=== PATIENT | female | born 1960 | race Caucasian/White ===

== ENCOUNTER 2017-12-11 20:20 | Emergency (ER) | payer OTHER, SELFPAY ==
[2017-12-11 20:32] VITALS: BP 110/61; PULSE 69; RESP 18; TEMP 36.9; O2SAT 96; BMI 23.3
--- NOTE | 2017-12-11 21:27 | ED_ITS ---
HPI - Eye Problem <KINSEY Mckeon-BC - Last Filed: 12/11/17 23:04> General Chief complaint: Eye Problems Stated complaint: EYE PAIN AND PUSS Time Seen by Provider: 12/11/17 20:40 Source: patient and family Mode of arrival: ambulatory Limitations: no limitations History of Present Illness HPI Narrative: Patient presents with sudden onset of right eye drainage, pus and eye burning. Denies blurry vision or double vision. States that she does have some problems seeing when she has pus in her eye. Denies eye pain in the back of her eye or with eye movement. States it is burning pain in the surface of her eye. She felt a transient foreign body sensation in the top of the eye but currently denies it. States that her eye hurts when she presses on it. She denies any fever, headache, nausea, vomiting or diarrhea. Related Data Home Medications Medication Instructions Recorded Confirmed biotin 5 mg PO #0 08/02/16 10/26/17 calcium carbonate [Calci-Chew] 1 tab PO #0 08/02/16 10/26/17 [BIEST] 1 ml TOPICAL QDAY #0 04/28/17 10/26/17 Previous Rx's Medication Instructions Recorded zolpidem 5 mg PO HS PRN #30 tab 04/08/17 ciprofloxacin HCl See Label Instructions .ROUTE 12/11/17 .COMPLEX #10 ml Allergies Allergy/AdvReac Type Severity Reaction Status Date / Time No Known Drug Allergies Allergy Unverified 10/26/17 19:02 Review of Systems <KINSEY Mckeon- - Last Filed: 12/11/17 23:04> Review of Systems GENERAL: Denies chills, fatigue, malaise, fever, sweats. HEENT: See HPI RESPIRATORY: Denies dyspnea, cough, wheezing, hemoptysis, sputum. CARDIOVASCULAR: Denies chest pain, palpitations, orthopnea, edema, GASTROINTESTINAL: Denies nausea, vomiting, abdominal pain, diarrhea, constipation, melena. : Denies dysuria, frequency, incontinence, hematuria, urinary retention. MUSCULOSKELETAL: denies weakness, joint pain, or bony pain SKIN: Denies rash, skin lesions, or other NEUROLOGIC: Denies weakness, headache, numbness, change in speech, confusion, seizures, incoordination. PSYCHIATRIC: No concerning psychosocial issues. 12 point review of systems is negative except for those stated above Exam <CARLOS Mckeon - Last Filed: 12/11/17 23:04> Narrative Exam Narrative: GENERAL: This is a well-nourished, well-developed patient, in mild distress. HEAD: Atraumatic. Normocephalic. No temporal or scalp tenderness. EYES: Pupils equal round and reactive bilaterally. EOMs intact bilaterally. No pain on EOMs. No visible stye or abnormality. Left corneal injection. Copious purulent drainage from a left eye and matting and lashes. ENT: Nose without bleeding, purulent drainage or septal hematoma. Throat without erythema, tonsillar hypertrophy or exudate. Uvula midline. Airway patent. NECK: No palpable lymphadenopathy CARDIOVASCULAR: Regular rate and rhythm without murmurs, gallops, or rubs. RESPIRATORY: Clear to auscultation. Breath sounds equal bilaterally. No wheezes , rales, or rhonchi. GASTROINTESTINAL: Abdomen soft, non-tender, nondistended. No hepato-splenomegaly , or palpable masses. No guarding. NEURO: AOx3. SKIN: No rash or erythema. No erythema or ecchymosis or rash around eyes. Initial Vital Signs Initial Vital Signs: Vital Signs Temperature 98.5 F 12/11/17 20:32 Pulse Rate 69 12/11/17 20:32 Respiratory Rate 18 12/11/17 20:32 Blood Pressure 110/61 12/11/17 20:32 Pulse Oximetry 96 12/11/17 20:32 <Rian Paige MD - Last Filed: 12/30/17 09:32> Initial Vital Signs Initial Vital Signs: Vital Signs Temperature 98.5 F 12/11/17 20:32 Pulse Rate 69 12/11/17 20:32 Respiratory Rate 18 12/11/17 20:32 Blood Pressure 110/61 12/11/17 20:32 Pulse Oximetry 96 12/11/17 20:32 Course <CARLOS Mckeon - Last Filed: 12/11/17 23:04> Additional Information: Patient presented for exudate and pain in her left eye. Visual acuity was done and patient states that her vision is normal for her. Exam revealed discharge from left eye, equal round reactive pupils. I offered slit lamp and fluorescein examination however patient declined at this point in time. Discussed at length follow-up if worsening or no improvement, eye pain or visual problems. Orders Ordered: Discontinued Medications Erythromycin (Erythromycin Ophth Oint) 1 applic EYE-LEFT NOW ONE Stop: 12/11/17 21:28 Last Admin: 12/11/17 21:46 Dose: 1 applic Vital Signs - 8 hr 12/11/17 20:32 12/11/17 21:42 Temperature 98.5 F Pulse Rate 69 65 Respiratory Rate 18 12 Blood Pressure 110/61 Blood Pressure [Left Arm] 109/63 Pulse Oximetry 96 100 <Rian Paige MD - Last Filed: 12/30/17 09:32> Orders Ordered: Discontinued Medications Erythromycin (Erythromycin Ophth Oint) 1 applic EYE-LEFT NOW ONE Stop: 12/11/17 21:28 Last Admin: 12/11/17 21:46 Dose: 1 applic Vital Signs - 8 hr 12/11/17 20:32 12/11/17 21:42 Temperature 98.5 F Pulse Rate 69 65 Respiratory Rate 18 12 Blood Pressure 110/61 Blood Pressure [Left Arm] 109/63 Pulse Oximetry 96 100 MDM - Eye Problem <CARLOS Mckeon - Last Filed: 12/11/17 23:04> [facility] Narrative Medical decision making narrative: Patient presented for left eye exudate and pain. Exam reveals purulent discharge from left eye. However pupils are equal round and reactive to light. Patient has no pain on eye movement. She did declined further examination via slit-lamp her fluorescein dye. I discussed strict follow-up for worsening vision, eye pain, or acute concerns. Patient stated she wanted to use colloid silver. I encouraged her to use prescription antibiotic medication. Given that pharmacies are closed, she was treated with bacitracin in the emergency department and given a prescription for Cipro drops. Discharge Plan Departure Patient Disposition: Home, Self-Care Clinical Impression: Conjunctivitis Discharge Date/Time: 12/11/17 21:53 Interventions: ED Discharge Assessment Last Done: 12/11/17 21:53 Instructions: DI for Conjunctivitis Activity Restrictions/Additional Instructions: I am starting you on antibiotics for an eye infection called conjunctivitis. We are starting you on an eye ointment tonight, but I have a prescription for eyedrops for you to fill tomorrow. I wanted to monitor for spreading redness from your eye, eye pain in the back of your eye and decreased vision. If you have any questions or concerns about your vision, please follow-up immediately. If you have any doubts her questions, follow-up. Prescriptions: New ciprofloxacin HCl 0.3 % drops See Label Instructions .ROUTE .COMPLEX Qty: 10 RF: 0 No Action calcium carbonate [Calci-Chew] 500 MG tablet,chewable 1 tab PO Qty: 0 RF: 0 biotin 5 MG tablet 5 mg PO Qty: 0 RF: 0 zolpidem 5 MG tablet 5 mg PO HS PRNQty: 30 RF: 3 [BIEST] 1 ml Topical QDAY Qty: 0 RF: 0 Referrals: Roxanna Riojas PA-C [Primary Care Provider] - <Rian Paige MD - Last Filed: 12/30/17 09:32> Sign Out Provider Sign Out Attestation: The PA/HEADER DOCK functioned independently for the care of this pt, I was available, but not asked to participate in care. I am unable to determine appropriateness of management without personally examining the pt.
[2017-12-11 21:42] VITALS: BP 109/63; PULSE 65; RESP 12; O2SAT 100
[2017-12-11] MEDS: ERYTHROMYCIN OPHTH 1 GM OINT 1 APPLIC EYE-LEFT (21:46)
== END 2017-12-11 21:53 | disposition home or self-care (01) ==
PROVIDERS: Emergency Provider Nurse Practitioner Family; Family Provider Physician Assistant; PCP Physician Assistant
DX: H10.9 Unspecified conjunctivitis (principal)
CPT/HCPCS: 99283

== ENCOUNTER 2018-02-18 15:49 | Emergency (ER) | payer OTHER, SELFPAY ==
[2018-02-18 15:54] VITALS: BP 128/81; PULSE 76; RESP 18; TEMP 36.1; O2SAT 100; BMI 23.0
--- NOTE | 2018-02-18 16:13 | ED.SYNCOPE ---
HPI - Syncope General Chief Complaint: Syncope Stated Complaint: HIT HEAD BLACKED OUT HEALS FEELS NUMB NECK PAIN Time Seen by Provider: 02/18/18 16:13 Source: patient Mode of arrival: ambulatory Limitations: no limitations History of Present Illness HPI narrative: 58-year-old female here for evaluation after she states that she was walking at a very fast pace stopping attention where she was going and she hit the bridge of her nose on a large metal object between the trailer and truck that was pulling the. She states that she did fall to the ground. She did not think that she lost any consciousness however was very dazed afterwards. Has no vision changes. Is having neck pain and was placed in a cervical collar by nursing staff states she was having tingling in her bilateral heels which is new for her. Related Data Home Medications Medication Instructions Recorded Confirmed biotin 5 mg PO #0 08/02/16 10/26/17 calcium carbonate [Calci-Chew] 1 tab PO #0 08/02/16 10/26/17 [BIEST] 1 ml TOPICAL QDAY #0 04/28/17 10/26/17 Previous Rx's Medication Instructions Recorded zolpidem 5 mg PO HS PRN #30 tab 04/08/17 ciprofloxacin HCl See Label Instructions .ROUTE 12/11/17 .COMPLEX #10 ml Allergies Allergy/AdvReac Type Severity Reaction Status Date / Time No Known Drug Allergies Allergy Verified 02/18/18 16:00 Review of Systems Constitutional Denies fever(s) and Reports headache(s) Eyes Denies blurry vision, Denies diplopia and Denies irritation ENT Ears, Nose, Mouth, and Throat: Denies dysphagia, Denies vertigo, Denies dizziness, Reports headache(s), Denies epistaxis, Reports nasal trauma, Reports neck pain, Denies tinnitus, Denies sore throat and Denies throat swelling Cardiovascular Denies chest pain and Denies dyspnea Respiratory Denies dyspnea Gastrointestinal Gastrointestinal: Denies abdominal pain, Denies dysphagia, Denies nausea and Denies vomiting Genitourinary Denies dysuria Musculoskeletal Denies back pain, Denies myalgias, Denies deformity, Reports neck pain and Reports numbness (Bilateral heels) Integumentary/Breasts Denies lesions and Denies rash Neurologic Denies vertigo, Denies dizziness, Reports headache(s) and Reports numbness (Bilateral heels) Hematologic/Lymphatic Denies easy bleeding and Denies easy bruising Allergic/Immunologic Denies throat swelling [facility] Medical History Healthy adult (Acute) Surgical History Status post surgery (07/26/16) Social History Smoking Status: Never smoker Exam Initial Vital Signs Initial Vital Signs: Vital Signs Temperature 97.0 F L 02/18/18 15:54 Pulse Rate 76 02/18/18 15:54 Respiratory Rate 18 02/18/18 15:54 Blood Pressure 128/81 02/18/18 15:54 Pulse Oximetry 100 02/18/18 15:54 Const General: cooperative, healthy appearing, comfortable, well developed, well groomed and No acute distress Orientation: alert, awake and oriented x3 HENMT Head: normal to inspection, normocephalic and atraumatic Ears: hearing grossly normal bilaterally and TM's normal bilaterally Nose: external nose normal, No epistaxis and No TMJ tender Face and sinus: normal facial exam, sinuses nontender and face symmetric Mouth: oral mucosae normal Resp Effort & Inspection: normal respiratory effort Auscultation: clear to auscultation bilaterally Cardio Rate: regular rate Rhythm: regular rhythm Pulses: radial pulses present GI Inspection: non-distended Palpation: soft, No firm and No tender Back/Spine/Pelvis Cervical Spine: collar present and cervical spinal tenderness (Midline) Skin Lesions: no lesions Rashes: no rashes Neuro General: alert, awake and oriented x3 Extrem General: capillary refill normal Psych Appearance: grossly normal and well kempt Course Orders Ordered: ED Orders 02/18/18 16:27 CT cervical spine wo con Stat CT head/brain wo con Stat Vital Signs - 8 hr 02/18/18 15:54 02/18/18 17:30 Temperature 97.0 F L Pulse Rate 76 71 Respiratory Rate 18 14 Blood Pressure 128/81 Blood Pressure [Left Arm] 126/74 Pulse Oximetry 100 99 MDM - Syncope Imaging Data CT scan - head: Radiologist's impression: [address] [address] [address] Scan Report Signed Patient: Kenyatta Lam RMR#: [id number] : [id number] Age/Sex: 58 / FDate of Service: 02/18/18 Loc: ED Accession Number: [id number] Procedure: CT head/brain wo con Ordering Provider: Leon Kelly D.O. PROCEDURE: CT HEAD/BRAIN WO CON INDICATIONS: Head injury also consciousness TECHNIQUE: Noncontrast 4.5 mm thick angled axial sections acquired from the foramen magnum to the vertex, with coronal and sagittal reformats. For radiation dose reduction, the following was used: automated exposure control, adjustment of mA and/or kV according to patient size. COMPARISON: None. FINDINGS: Image quality: Excellent. CSF spaces: Basal cisterns are patent. No extra-axial fluid collections. Ventricles are normal in size and shape. Brain: No midline shift. No intracranial masses or hemorrhage. Yusuf-white matter interface is normal. Skull and face: Calvarium and visualized facial bones are intact, without suspicious lesions. Sinuses: Visualized sinuses and mastoids are clear. IMPRESSION: No CT evidence of acute intracranial pathology. No gross acute skull fracture. Dictated by: Binu Cleary M.D. on 02/18/2018 at 17:28 Approved by: Binu Cleary M.D. on 02/18/2018 at 17:29 CT cervical spine: Radiologist's impression: [place] [address] CT Scan Report Signed Patient: Kenyatta Lam RMR#: [id number] : [id number] Age/Sex: 58 / FDate of Service: 02/18/18 Loc: ED Accession Number: [id number] Procedure: CT cervical spine wo con Ordering Provider: Leon Kelly D.O. PROCEDURE: CT CERVICAL SPINE WO CON INDICATIONS: Midline cervical pain after hitting head TECHNIQUE: Noncontrast 3 mm thick sections acquired from the skull base to the T4 level. Sagittal and coronal reformats were then constructed. For radiation dose reduction, the following was used: automated exposure control, adjustment of mA and/or kV according to patient size. COMPARISON: None. FINDINGS: Image quality: Excellent. Bones: There is straightening of normal cervical lordosis. No acute cervical spine vertebral body fracture is seen. No acute compression fracture or traumatic spondylolisthesis is seen. Minimal anterolisthesis of C3 on C4 and minimal retrolisthesis of C4 on C5 is noted. Degenerative endplate changes are noted at C3-4 through C5-6 levels with mild central canal stenosis, no significant neural foramina narrowing. Visualized superior ribs are intact. Soft tissues: Prevertebral soft tissues are normal in thickness. No paravertebral hematomas. No apical pneumothoraces. IMPRESSION: No acute cervical spine fracture or traumatic spondylolisthesis. Degenerative disc disease throughout cervical spine with suggestion of degenerative spondylolisthesis at C4-5 and C3-4 levels. Dictated by: Binu Cleary M.D. on 02/18/2018 at 17:31 Approved by: Binu Cleary M.D. on 02/18/2018 at 17:33 [facility] Narrative Medical decision making narrative: CT scan of her head neck shows no acute pathology. Does have degenerative changes in her cervical spine which the patient knows about these. With the neurologic symptoms after hitting her head I do suspect that she has sustained a concussion. No nasal fractures noted. Her nose is midline and she is able to breathe out of both nares. Will hold on further workup for now. Discussed all this with the patient. She was given return precautions. She expressed understanding and agreement with plan. Discharge Plan Departure Patient Disposition: Home Clinical Impression: CHI (closed head injury), Acute whiplash injury Discharge Date/Time: 02/18/18 18:15 Interventions: ED Discharge Assessment Last Done: 02/18/18 18:15 Instructions: Whiplash, Concussion, DI for Closed Head Injury Activity Restrictions/Additional Instructions: Would not be surprised if you are more sore tomorrow than you are today. Take the Tylenol/ibuprofen like we discussed. Also recommend that you do light stretching and heat and ice. Return to the emergency department for any new or worsening symptoms. Prescriptions: No Action calcium carbonate [Calci-Chew] 500 MG tablet,chewable 1 tab PO Qty: 0 RF: 0 biotin 5 MG tablet 5 mg PO Qty: 0 RF: 0 zolpidem 5 MG tablet 5 mg PO HS PRNQty: 30 RF: 3 [BIEST] 1 ml Topical QDAY Qty: 0 RF: 0 ciprofloxacin HCl 0.3 % drops See Label Instructions .ROUTE .COMPLEX Qty: 10 RF: 0
--- NOTE | 2018-02-18 16:27 | DI.CT.S_ITS ---
PROCEDURE: CT HEAD/BRAIN WO CON INDICATIONS: Head injury also consciousness TECHNIQUE: Noncontrast 4.5 mm thick angled axial sections acquired from the foramen magnum to the vertex, with coronal and sagittal reformats. For radiation dose reduction, the following was used: automated exposure control, adjustment of mA and/or kV according to patient size. COMPARISON: None. FINDINGS: Image quality: Excellent. CSF spaces: Basal cisterns are patent. No extra-axial fluid collections. Ventricles are normal in size and shape. Brain: No midline shift. No intracranial masses or hemorrhage. Yusuf-white matter interface is normal. Skull and face: Calvarium and visualized facial bones are intact, without suspicious lesions. Sinuses: Visualized sinuses and mastoids are clear. IMPRESSION: No CT evidence of acute intracranial pathology. No gross acute skull fracture. Dictated by: Binu Cleary M.D. on 02/18/2018 at 17:28 Approved by: Binu Cleary M.D. on 02/18/2018 at 17:29
--- NOTE | 2018-02-18 16:27 | DI.CT.S_ITS ---
PROCEDURE: CT CERVICAL SPINE WO CON INDICATIONS: Midline cervical pain after hitting head TECHNIQUE: Noncontrast 3 mm thick sections acquired from the skull base to the T4 level. Sagittal and coronal reformats were then constructed. For radiation dose reduction, the following was used: automated exposure control, adjustment of mA and/or kV according to patient size. COMPARISON: None. FINDINGS: Image quality: Excellent. Bones: There is straightening of normal cervical lordosis. No acute cervical spine vertebral body fracture is seen. No acute compression fracture or traumatic spondylolisthesis is seen. Minimal anterolisthesis of C3 on C4 and minimal retrolisthesis of C4 on C5 is noted. Degenerative endplate changes are noted at C3-4 through C5-6 levels with mild central canal stenosis, no significant neural foramina narrowing. Visualized superior ribs are intact. Soft tissues: Prevertebral soft tissues are normal in thickness. No paravertebral hematomas. No apical pneumothoraces. IMPRESSION: No acute cervical spine fracture or traumatic spondylolisthesis. Degenerative disc disease throughout cervical spine with suggestion of degenerative spondylolisthesis at C4-5 and C3-4 levels. Dictated by: Binu Cleary M.D. on 02/18/2018 at 17:31 Approved by: Binu Cleary M.D. on 02/18/2018 at 17:33
--- NOTE | 2018-02-18 16:44 | PC.NURSE ---
called into room, due to shaking and jaw shaking/ called into room, spoke with her. seems anxious. at side
[2018-02-18 17:30] VITALS: BP 126/74; PULSE 71; RESP 14; O2SAT 99
== END 2018-02-18 18:15 | disposition home or self-care (01) ==
PROVIDERS: Emergency Provider Emergency Medicine; Family Provider Physician Assistant; PCP Physician Assistant
DX: S09.90XA Unspecified injury of head, initial encounter (principal); S13.4XXA Sprain of ligaments of cervical spine, initial encounter; W22.8XXA Striking against or struck by other objects, initial encounter
CPT/HCPCS: 70450; 72125; 99283; 99284

== ENCOUNTER → 2018-10-12 15:24 | Outpatient (CLI) | payer OTHER, SELFPAY ==
--- NOTE | 2018-10-12 | DI.RAD.S_ITS ---
PROCEDURE: XR RIBS RT MIN 3V W CXR 1V INDICATIONS: Unspecified injury of thorax, initial encounter TECHNIQUE: 2 views of the right ribs were acquired, along with a single view chest. COMPARISON: None. FINDINGS: Surgical changes and devices: None. Bones and chest wall: No fractures or dislocations. No suspicious bony lesions. Overlying soft tissues appear unremarkable. Lungs and pleura: No pleural effusions or pneumothorax. Lungs appear clear. Mediastinum: Mediastinal contours appear normal. Heart size is normal. IMPRESSION: No displaced rib fractures. No acute cardiopulmonary findings. Dictated by: Jovanna Lozada M.D. on 10/12/2018 at 15:56 Approved by: Jovanna Lozada M.D. on 10/12/2018 at 15:57
== END ==
PROVIDERS: Family Provider Physician Assistant; PCP Physician Assistant; Visit Provider Physician Assistant
DX: S29.9XXA Unspecified injury of thorax, initial encounter (principal)
CPT/HCPCS: 71101

== ENCOUNTER → 2021-01-19 08:08 | Outpatient (CLI) | payer OTHER, SELFPAY ==
[2021-01-19 11:12] LABS: COVID19 -Nasal RAPID Negative (Negative)
== END ==
PROVIDERS: Family Provider Physician Assistant; PCP Physician Assistant; Visit Provider Obstetrics & Gynecology
DX: Z01.812 Encounter for preprocedural laboratory examination (principal); Z20.822 Contact with and (suspected) exposure to COVID-19
CPT/HCPCS: 87635

== ENCOUNTER 2021-01-20 09:01 | Day surgery (SDC) | payer OTHER, SELFPAY ==
[2021-01-08 15:04] VITALS: BMI 24.7
[2021-01-20] VITALS (9 sets, daily range): BP systolic 94–105; BP diastolic 46–65; PULSE 54–84; RESP 10–56; TEMP 35.6–36.8; O2SAT 95–100; BMI 23.3
--- NOTE | 2021-01-20 | PATH_ITS ---
[facility] Accession Number: [id number] . 01 Material submitted: . PART A: cervix - CONE BIOPSY OF CERVIX PART B: cervix - CERVICAL BIOPSY AT 6 O'CLOCK PART C: cervix - CERVICAL BIOPSY OF 12 O'CLOCK PART D: endocervix - ENDOCERVICAL CURETTAGE . 01 Clinical history: . A: SUTURE AT 12 O'CLOCK . 02 Diagnosis: A. Cone Biopsy of Cervix: All quadrants involved by high-grade squamous intraepithelial lesion / FIDEL 2-3 with patchy gland extension. High-grade squamous intraepithelial lesion / FIDEL 2-3 focally involves one margin, favor endocervical, in the 6-9 o'clock quadrant. The apparent ectocervical margin is negative for dysplasia. Positive for block immunostaining for p16. No invasive tumor identified by immunohistochemistry studies. . B. Cervical Biopsy at 6 o'clock, LEEP: Focal cytologic atypia suggestive of, but not diagnostic of, low-grade squamous intraepithelial lesion / FIDEL-1. The apparent tissue margins are negative for dysplasia. No features of previous instrumention are present. No definite transformation zone identified. . C. Cervical Biopsy at 12 o'clock, LEEP: Squamous mucosa with reactive changes; negative for squamous dysplasia or malignancy. Negative for p16 block immunostaining. No transformation zone identified. . D. Endocervical Curettage: Avulsed portions of atypical metaplastic squamous mucosa, concerning for high-grade squamous intraepithelial lesion / FIDEL 2-3 by immunohistochemistry studies. Small squamous fragments positive for p16 block immunostaining. Portion of endocervical polyp; negative for glandular dysplasia or malignancy. [facility] 01/23/2021 1406 Local . 02 Comment: . . . 02 Electronically signed: . Beata Villafana MD, Pathologist NPI- [id number] . 01 Gross description: . A. Received in formalin, labeled cone biopsy of cervix consists of a 1.4 x 1.0 cm guy smooth portion of ectocervix excised to a depth of 2.0 cm with a 0.8 x 0.3 cm os. There is a suture designated 12 o'clock. The endocervical margin is inked blue. The ectocervical margin is inked black. The specimen is radially sectioned and entirely submitted. . A1: 12-3 o'clock. A2: 3-6 o'clock. A3: 6-9 o'clock. A4: 9-12 o'clock. . B. Received in formalin, labeled cervical biopsy at 6 o'clock consists of a 2.0 x 0.5 x 0.4 cm guy-pink smooth portion of ectocervix. The margin is inked blue. The specimen is serially sectioned and entirely submitted in cassettes B1-B3. C. Received in formalin, labeled cervical biopsy at 12 o'clock consists of a 2.5 x 0.9 x 0.3 cm guy-pink smooth portion of ectocervix. The margin is inked blue. The specimen is serially sectioned and entirely submitted in cassettes C1-C3. D. Received in formalin, labeled endocervical curettage consists of multiple guy-pink fragments of soft tissue admixed with mucus and clotted blood measuring 2.5 x 1.5 x 0.4 cm in aggregate. The specimen is filtered and entirely submitted in cassette D1. ([id number]) /[facility] 01/21/2021 1044 Local . 02 Microscopic: . An immunohistochemical stain for p16 is performed on blocks A2, A3 and A4 to evaluate for block reactivity and are positive for block immunostaining. The control stained with appropriate reactivity. . Part A: P16 block immunostaining supports the presence of high risk HPV DNA in this biopsy. No evidence of invasive tumor. . An immunohistochemical stain for p16 is performed on blocks, C1, C2 and C3 to evaluate for block reactivity and are negative for block immunostaining. The control stained with appropriate reactivity. . Part C: The absence of p16 block immunostaining mitigates against the presence of high risk HPV DNA in this biopsy. . . An immunohistochemical stain for p16 is performed on block D1 to evaluate for block reactivity and is positive for block immunostaining. The control stained with appropriate reactivity. . Part D: P16 block immunostaining supports the presence of high risk HPV DNA in this biopsy. . . * This test was developed and its performance characteristics determined by [facility]. It has not been cleared or approved by the U.S. Food and Drug Administration. The FDA has determined that such clearance or approval is not necessary. This test is used for clinical purposes. It should not be regarded as investigational or for research. . 02 Pathologist provided ICD-10: N87.1, D06.9 . 02 CPT . 431458, 626300, 521787, 536956, [id number] Performed at: 01 [facility] [address] [place] [address], [place], [place] [id number] MD Joaquin Cordoba MD Phone: [phone] Performed at: 02 [facility] [address] [place] [id number] MD Shani Sapp MD Phone: [phone]
--- NOTE | 2021-01-20 09:49 | PM.PREOP ---
Pre-operative Note COVID-19 COVID-19 status: Negative Result date/Date tested (Pos, Neg/Pending): 01/19/21 Interval Note History & Physical reviewed/Exam performed by Physician: Yes Changes to H&P: No
--- NOTE | 2021-01-20 09:50 | P.HPOB_ITS ---
History of Present Illness History of Present Illness Reason for admission: other (FIDEL 2-3 on colpo directed biopsies of ECC and 12:00 p.m. biopsies) Narrative: Kenyatta Lam is a 60 year old female Admitted for cone LEEP for high-grade IVETT on colpo directed biopsies on 12/22/2020 both the endocervix and cervical 12:00 p.m. biopsy. Prior Pap smear 11/14/2020 was ASCUS cannot rule out high-grade dysplasia with positive high- risk HPV. [facility] Medical History (Updated 01/20/21 @ 09:55 by Marya Castaneda MD) Healthy adult Menorrhagia Submucous uterine fibroid Surgical History (Updated 01/08/21 @ 15:15 by Rowena Sherwood RN) History of bunionectomy History of hysteroscopy (07/26/16) Social History household members: spouse Smoking Status: Never smoker alcohol intake: current Meds Home Medications and Allergies Home Medications Medication Instructions Recorded Confirmed Type biotin 5 mg tablet 5 mg PO DAILY #0 08/02/16 01/20/21 History calcium carbonate 500 mg calcium 1 tab PO DAILY #0 08/02/16 01/20/21 History (1,250 mg) chewable tablet (Calci-Chew) [BIEST] 1 ml TOPICAL QDAY #0 04/28/17 12/26/18 History terbinafine HCl 1 % topical cream 1 applictn TOP BID #30 gram 12/26/18 01/08/21 Rx zolpidem 5 mg tablet 5 mg PO HS PRN 01/08/21 01/20/21 History alprazolam 1 mg tablet 0.5 - 1 mg PO BEDTIME PRN 01/19/21 01/20/21 History Progest Sl 0.2 ml PO DAILY 01/20/21 01/20/21 History Allergies Allergy/AdvReac Type Severity Reaction Status Date / Time No Known Drug Allergies Allergy Verified 12/26/18 17:29 Review of Systems Review of Systems Narrative: Patient denies any problems with her bladder. No uterine bleeding. No pelvic pain. ROS: Yes All systems reviewed with the patient and are negative except as otherwise documented Exam Narrative Exam Narrative: HEENT exam within normal limits. Lungs are clear to auscultation percussion. Heart is regular rate and rhythm no S3-S4 or murmurs. Abdomen is soft, nontender with no palpable organomegaly. Pap smear will be deferred for exam under anesthesia but normal exam by referring physician. Extremities nontender. Consent form for LEEP cone was reviewed with the patient. Minimal risk from the procedure such as bleeding, inadvertent injury to structures near the cervix, infection, reaction to medication or anesthesia. Patient is aware if she actually has cancer she will need a hysterectomy. Consent form signed and questions answered. Assessment & Plan Assessment and plan (1) High grade squamous intraepithelial lesion (HGSIL), grade 3 FIDEL, on biopsy of cervix: Status: Acute (2) Cervical high risk HPV (human papillomavirus) test positive: Status: Acute (3) Preoperative exam for gynecologic surgery: Status: Acute Assessment & Plan narrative: Patient with high-grade dysplasia of the cervix on endocervical curettage and on ectocervical biopsy for cone LEEP. Postoperative precautions reviewed with the patient. Treatment and follow-up will be based on results.
[2021-01-20] MEDS: LACTATED RINGERS 1,000 ML 42 ML IV (09:53)
--- NOTE | 2021-01-20 10:24 | SUR.OPER ---
Lithotomy on padded OR bed, head on pillow, arms secured on padded arm boards at <90 degrees abduction. Legs secured in padded yellow fins stirrups.
[2021-01-20] MEDS: POTASSIUM IODIDE/IODINE 473 ML SOLUTION TOP (10:27)
[2021-01-20] MEDS: BUPIVACAINE 0.25% W/ EPI 30 ML VIAL INJ (10:28)
[2021-01-20] MEDS: FERRIC SUBSULFATE 8 GM SOLUTION 8 ML TOP (10:39)
--- NOTE | 2021-01-20 10:57 | P.OP_ITS ---
Operative Date/Time/Diagnoses Date of procedure: 01/20/21 Time of procedure: 10:57 Pre-op diagnosis: FIDEL 2-3 on endocervical curettage and biopsy at 12:00 p.m. of the cervix on colposcopy Post-op diagnosis: same Procedure & Clinicians Procedure: Cold knife cone and LEEP with ECC Same procedure as scheduled: Yes Indications: High-grade dysplasia on ECC and cervical biopsy colposcopy done for ASCUS Pap smear cannot rule out high-grade dysplasia with positive high-risk HPV Surgeon: Marya Castaneda Click Yes if Unassisted: Yes Anesthesia Type: General Operative Notes Closure Type: not applicable Specimen(s): other (Cold knife cone with 12:00 p.m. tagged, LEEP outside of the cold knife including the bottom half of the cervix and a 2nd specimen the top half a cervix as well as ECC) Estimated Blood Loss (mL): 2 Blood products transfused: none Procedure in detail: Patient was brought to the operating room where she underwent general anesthesia was placed in [facility] ([place]). A check system was reviewed with the staff in the room prior to beginning the case. The bladder was drained with in and out catheter. Warming was with blankets. Pulsatile stockings were in place and functional. No antibiotics were indicated. The cervix was stained with Lugol's and there were no nonstaining areas visible. 20 cc of 1/4 % Marcaine with epi were injected into the cervix. 0 chromic sutures were placed at 3 and 9:00 a.m.. A scalpel was used to remove a cone shaped biopsy of the cervix with 12:00 p.m. marked with suture. The LEEP was used to remove the external cervix in 1 biopsy from 3 to 9 labeled as posterior and a 2nd from 9 to 3 labeled as anterior. An ECC was performed and sent. Cautery was used to cauterize outside of the biopsy and the base of the biopsy. Monsel's was placed. Counts of instruments and sponges were correct. Patient went to recovery room in good condition. Complications: none Post-operative Condition: stable Disposition: same day surgery Plan for aftercare: Treatment and follow-up based on biopsy results
== END 2021-01-20 12:00 | disposition home or self-care (01) ==
PROVIDERS: Family Provider Physician Assistant; PCP Student in an Organized Health Care Education/Training Program; Referring Provider Specialist; Visit Provider Specialist
PROC: 0UBC7ZZ Excision of Cervix, Via Natural or Artificial Opening (ICD-10-PCS; CPT 57522; principal; 2021-01-20 10:15)
DX: N87.1 Moderate cervical dysplasia (principal); R87.810 Cervical high risk human papillomavirus (HPV) DNA test positive
CPT/HCPCS: 57522; A9270; J1100; J1885; J2405; J2704; J3010

== ENCOUNTER → 2021-08-11 17:09 | Outpatient (CLI) | payer OTHER, SELFPAY ==
--- NOTE | 2021-08-11 17:14 | DI.RAD.S_ITS ---
PROCEDURE: XR ABDOMEN 1V INDICATIONS: Bloating TECHNIQUE: One view of the abdomen acquired. COMPARISON: CT, CHEST/ABDOMEN WITH CONTRAST, 04/08/2016, 9:35. US, PELVIC COMPLETE, 07/19/2016, 13:38. [facility], CT, ABDOMEN WITH CONTRAST, 11/05/2016, 8:33. FINDINGS: Surgical changes and devices: None. Bowel: Bowel gas pattern is normal. Moderate amount of stool in colon. Soft tissues: No suspicious abdominal calcifications. Visualized solid organ contours appear normal in size. A 2.7 cm calcified mass in pelvis is most likely a calcified uterine fibroid. Bones: No suspicious bony lesions. Degenerative changes noted in the lower lumbar spine. IMPRESSION: 1. Moderate amount of stool in colon consistent with constipation. 2. A calcified uterine fibroid. Dictated by: Chaparro Seay M.D. on 08/12/2021 at 13:00 Approved by: Chaparro Seay M.D. on 08/12/2021 at 13:03
== END ==
PROVIDERS: Family Provider Physician Assistant; PCP Student in an Organized Health Care Education/Training Program; Referring Provider Student in an Organized Health Care Education/Training Program; Visit Provider Student in an Organized Health Care Education/Training Program
DX: R14.0 Abdominal distension (gaseous) (principal); D25.9 Leiomyoma of uterus, unspecified
CPT/HCPCS: 74018

== ENCOUNTER → 2021-11-19 14:25 | Outpatient (CLI) | payer OTHER, SELFPAY ==
--- NOTE | 2021-11-19 | DI.CT.S_ITS ---
PROCEDURE: CT ANGIO CHEST PE PROTOCOL INDICATIONS: Palpitations TECHNIQUE: After the administration of intravenous contrast, 2 mm thick sections acquired from the pulmonary apices to the posterior costophrenic angles. 3-dimensional maximum intensity projection (MIP) coronal and sagittal reformats were then acquired through the thorax. For radiation dose reduction, the following was used: automated exposure control, adjustment of mA and/or kV according to patient size. COMPARISON: [facility], CT, CHEST/ABDOMEN WITH CONTRAST, 04/08/2016, 9:35. FINDINGS: Image quality: Excellent. Pulmonary arteries: Pulmonary arteries are normal in size, and demonstrate no intraluminal filling defects to suggest central pulmonary embolism. Lungs and pleura: Dependent atelectasis. Right middle lobe pulmonary nodule measuring 0.5 cm, (5/184), unchanged since 2016 suggesting a benign etiology. No pleural effusions or pneumothorax. Central and peripheral airways are patent. Mediastinum: Heart size is normal, without pericardial effusion. No mediastinal or hilar adenopathy. Thoracic aorta is normal in caliber and enhancement. Esophagus is normal in caliber, without hiatal hernia. Bones and chest wall: No suspicious bony lesions. Ribs and thoracic spine appear intact throughout. Thyroid gland is unremarkable. No axillary or supraclavicular adenopathy. Breast implants. Abdomen: Visualized upper abdominal solid organs appear normal in the early arterial phase of enhancement. Hypodensity in the left lobe of the liver is unchanged since 2016 suggesting a benign cyst or hemangioma. IMPRESSION: 1. No pulmonary embolism. 2. Mild dependent ground-glass opacity most consistent with atelectasis. No pleural effusion. Dictated by: Juan Carlos Mcdonald M.D. on 11/19/2021 at 14:54 Approved by: Juan Carlos Mcdonald M.D. on 11/19/2021 at 15:03
== END ==
PROVIDERS: Family Provider Physician Assistant; PCP Student in an Organized Health Care Education/Training Program; Referring Provider Internal Medicine; Visit Provider Internal Medicine
DX: R00.2 Palpitations (principal)
CPT/HCPCS: 71275; Q9967